=== PATIENT | male | born 1985 | race Caucasian/White ===

== ENCOUNTER 2018-02-12 05:51 | Inpatient (IN) | payer MEDICAID ==
[~2018-02-12] VITALS: Ht 177.8 cm; Wt 99.8 kg
[2018-02-12] MEDS ORDERED: LACTATED RINGERS 1,000 ML IV SCH (06:30)
[2018-02-12] MEDS ORDERED: HYDR-4001 PO (07:26)
[2018-02-12] MEDS ORDERED: IBUP-2029 PO (07:26)
[2018-02-12] MEDS ORDERED: FENTANYL CITRATE/PF 50MCG/ML 5ML VIAL ONE (09:01)
[2018-02-12] MEDS ORDERED: MIDAZOLAM HCL 2 MG/2 ML VIAL ONE (09:01)
[2018-02-12] MEDS ORDERED: PROPOFOL 200MG/20ML VIAL IV ONE (09:01)
[2018-02-12] MEDS ORDERED: ROCURONIUM BROMIDE 10MG/ML VIAL 5ML IV ONE ×2 (09:01→10:51)
[2018-02-12] MEDS ORDERED: HYDROMORPHONE HCL/PF 2MG/ML (OR) ONE (09:01)
[2018-02-12] MEDS ORDERED: GELATIN SPONGE,ABSORBABLE 12-7MM SPONGE ONE (09:54)
[2018-02-12] MEDS ORDERED: THROMBIN (BOVINE) 5000 UNITS/VIAL TOP ONE (09:54)
[2018-02-12] MEDS ORDERED: BACITRACIN 50,000 UNITS/VIAL ONE (09:55)
[2018-02-12] MEDS ORDERED: LIDOCAINE HCL/EPINEPHRINE 1%-EPI 1:100,000 20 ML VIAL ONE (09:55)
[2018-02-12] MEDS ORDERED: ESMOLOL HCL 10MG/ML 10ML VIAL IV ONE (10:40)
[2018-02-12] MEDS ORDERED: CEFAZOLIN SODIUM 1000MG/VIAL ONE (10:40)
[2018-02-12] MEDS ORDERED: NEOSTIGMINE METHYLSULFATE 1MG/ML 10 ML VIAL ONE (11:32)
[2018-02-12] MEDS ORDERED: GLYCOPYRROLATE 0.2 MG/ML 2ML VIAL ONE (11:32)
[2018-02-12] MEDS ORDERED: ONDANSETRON HCL 4MG/2ML INJ IV PRN ×2 (12:30→21:35)
[2018-02-12] MEDS ORDERED: MEPERIDINE HCL/PF 25MG/ML CPJ IV PRN (12:30)
[2018-02-12] MEDS ORDERED: FENTANYL CITRATE/PF 50MCG/ML 2ML VIAL IV PRN (12:30)
[2018-02-12] MEDS: HYDROMORPHONE HCL/PF 2MG/ML CPJ IV PRN ×5 (12:35→14:18)
[2018-02-12] MEDS: HYDROMORPHONE PCA 10MG/50ML IV PRN ×2 (12:59→22:25)
[2018-02-12] MEDS ORDERED: NALOXONE INJ IV PRN (13:00)
[2018-02-12] MEDS ORDERED: ONDANSETRON INJ IV PRN (13:00)
[2018-02-12] MEDS ORDERED: DIPHENHYDRAMINE INJ IV PRN (13:00)
[2018-02-12] MEDS ORDERED: HYDROCODONE/APAP 7.5/325MG 1 TAB TABLET PO NR (17:45)
[2018-02-12] MEDS ORDERED: CEFAZOLIN SODIUM 1000MG/VIAL IV SCH (18:00)
[2018-02-12] MEDS ORDERED: HYDROCODONE/APAP 7.5/325MG 1 TAB TABLET ONE (18:06)
[2018-02-12] MEDS: DEXT 5%/LACTATED RINGERS 1,000 ML IV SCH (18:07)
[2018-02-12 19:30] VITALS: BP 117/68
[2018-02-12 20:00] VITALS: BP 117/68
[2018-02-12] MEDS ORDERED: CLONIDINE 0.1MG TABLET PO PRN (21:36)
[2018-02-13] VITALS: BP 99/53
[2018-02-13] MEDS: CEFAZOLIN 1000MG PREMIX 50 ML IV SCH ×3 (01:56→17:24)
[2018-02-13 04:00] VITALS: BP 118/83
[2018-02-13] MEDS: DEXT 5%/LACTATED RINGERS 1,000 ML IV SCH ×2 (04:57→23:46)
[2018-02-13] MEDS: HYDROCODONE/APAP 7.5/325MG 1 TAB TABLET PO PRN ×3 (04:57→19:58)
[2018-02-13 08:00] VITALS: BP 105/61
[2018-02-13] MEDS ORDERED: ACETAMINOPHEN 325MG TABLET PO PRN (08:45)
[2018-02-13] MEDS ORDERED: DEXT 5%/LACTATED RINGERS 1,000 ML IV ONE (09:00)
[2018-02-13 11:15] LABS: HEMATOCRIT 44.2 % (42.0-52.0); HEMOGLOBIN 15.2 g/dL (14.0-18.0); MEAN CORPUSCULAR HEMOGLOBIN 29.1 pg (28.0-32.0); MEAN CORPUSCULAR VOLUME 84.5 fL (80.0-94.0); PLATELET 215 x1000/uL (130-400); RED BLOOD CELL COUNT 5.23 mill/uL (4.7-6.1); RED CELL DISTRIBUTION WIDTH 13.7 % (11.6-14.6)
[2018-02-13 11:30] LABS: CHLORIDE 102 mEq/L (98-107)
[2018-02-13 12:00] VITALS: BP 107/59
[2018-02-13 16:00] VITALS: BP 118/71
[2018-02-13] MEDS: HYDROMORPHONE PCA 10MG/50ML IV PRN ×2 (19:20→23:48)
[2018-02-13 20:00] VITALS: BP 133/72
[2018-02-14] VITALS: BP 114/66
[2018-02-14] MEDS: CEFAZOLIN 1000MG PREMIX 50 ML IV SCH ×3 (02:03→17:30)
[2018-02-14 04:00] VITALS: BP 134/78
[2018-02-14 08:00] VITALS: BP 126/70
[2018-02-14] MEDS: HYDROCODONE/APAP 7.5/325MG 1 TAB TABLET PO PRN ×3 (08:09→22:02)
[2018-02-14 12:00] VITALS: BP 143/70
[2018-02-14] MEDS: DEXT 5%/LACTATED RINGERS 1,000 ML IV SCH (12:10)
[2018-02-14] MEDS: HYDROMORPHONE PCA 10MG/50ML IV PRN (14:20)
[2018-02-14 16:00] VITALS: BP 139/67
[2018-02-14] MEDS: DOCUSATE SODIUM 100MG CAPSULE PO SCH (17:30)
[2018-02-14 20:00] VITALS: BP 127/75
[2018-02-15] VITALS: BP 114/74
[2018-02-15] MEDS: CEFAZOLIN 1000MG PREMIX 50 ML IV SCH ×2 (01:48→09:25)
[2018-02-15] MEDS: HYDROCODONE/APAP 7.5/325MG 1 TAB TABLET PO PRN ×2 (02:04→08:12)
[2018-02-15 04:00] VITALS: BP 128/76
[2018-02-15 06:42] LABS: CHLORIDE 104 mEq/L (98-107)
[2018-02-15 06:47] LABS: HEMATOCRIT 43.1 % (42.0-52.0); MEAN CORPUSCULAR HEMOGLOBIN 29.6 pg (28.0-32.0); MEAN CORPUSCULAR VOLUME 84.7 fL (80.0-94.0); PLATELET 210 x1000/uL (130-400); RED BLOOD CELL COUNT 5.09 mill/uL (4.7-6.1); RED CELL DISTRIBUTION WIDTH 13.8 % (11.6-14.6)
[2018-02-15 08:00] VITALS: BP 106/89
[2018-02-15] MEDS: DOCUSATE SODIUM 100MG CAPSULE PO SCH (08:11)
[2018-02-15] MEDS ORDERED: HYDROMORPHONE HCL/PF 2MG/ML CPJ IV NR (11:45)
[2018-02-15 12:00] VITALS: BP 131/77
[2018-02-15] MEDS ORDERED: CLONIDINE 0.1MG TABLET PO PRN (14:00)
[2018-02-15 14:07] VITALS: BP 131/77
[2018-02-15] MEDS ORDERED: HYDROCHLOROTHIAZIDE 25MG TABLET PO SCH (15:00)
[2018-02-15] MEDS ORDERED: LISINOPRIL 2.5MG TABLET PO SCH (15:00)
== END 2018-02-15 14:30 | disposition home or self-care (01) | DRG 310 ==
LOC: OR 05:51 → 6EST 21:30
PROVIDERS: ADMIT Internal Medicine; ATTEND Internal Medicine
PROC: 0SB40ZZ Excision of Lumbosacral Disc, Open Approach (ICD-10-PCS; principal; 2018-02-12)
DX: M51.17 Intervertebral disc disorders with radiculopathy, lumbosacral region (principal); G82.20 Paraplegia, unspecified; E66.9 Obesity, unspecified; M48.07 Spinal stenosis, lumbosacral region; F17.200 Nicotine dependence, unspecified, uncomplicated; Z71.6 Tobacco abuse counseling; Z68.31 Body mass index [BMI] 31.0-31.9, adult
CPT/HCPCS: 36415; 71045; 72100; 80048; 85027; 86850; 86900; 88304; 88311; 95925; 95926; 95928; 95929; 97116; 97163; 97166; J0690; J1170; J1200; J2250; J2405; J2704; J2710; J3010; J3490; J7121